=== PATIENT | female | born 1985 | race Caucasian/White ===

== ENCOUNTER 2024-08-12 20:37 | Emergency (ER) | payer SELFPAY ==
[2024-08-12 21:04] LABS: % Basophils 0.4 % (0-2); % Eosinophils 1.4 % (0-6); % Immature Granulocytes 0.4 % (0-0.5); % Lymphocytes 18.7 % (20.5-51.1); % Monocytes 8.1 % (1.7-9.3); Absolute Eosinophils 0.1 10^3/uL (0-0.7); Absolute Lymphocytes 1.5 10^3/uL (1.2-3.4); Absolute Monocytes 0.7 10^3/uL (0.1-0.6); Absolute Neutrophils 5.8 10^3/uL (1.4-6.5); Hematocrit 35.7 % (37.0-47.0); Hemoglobin 12.1 g/dL (12.0-16.0); Mean Corp Hgb Conc. 33.9 g/dL (33.0-37.0); Mean Corpuscular Volume 91.5 fL (81.0-99.0); Nucleated Red Blood Cells % 0 %; Platelet Count 207 10^3/uL (130-400); Red Cell Dist. Width 14.4 % (11.5-14.5); Urine Albumin 1+ (Neg - Trace); Urine Bilirubin Negative (Negative); Urine Character Clear (Clear); Urine Color Yellow; Urine Glucose Negative (Negative); Urine Ketone Negative (Negative); Urine Leukocyte 2+ (Negative); Urine Nitrite Positive (Negative); Urine Occult Blood 3+ (Negative); Urine Specific Gravity 1.015 (<1.030); Urine Urobilinogen Negative (Neg - 1+); White Blood Cell Count 8.1 10^3/uL (4.8-10.8)
[2024-08-12 21:11] LABS: HCG, Serum Qualitative Screen Negative
[2024-08-12 21:14] LABS: Urine Bacteria Many (Negative); Urine White Cell 70-80 /HPF (0-5)
[2024-08-12 21:25] LABS: ALT (SGPT) 15 U/L (0-35); AST (SGOT) 19 U/L (14-36); Alkaline Phosphatase 63 U/L (38-126); Blood Urea Nitrogen 13 mg/dl (7-17); Calcium 9.1 mg/dl (8.4-10.2); Carbon Dioxide 26 mmol/L (22-30); Chloride 102 mmol/L (98-107); Glucose 98 mg/dl (70-99); Potassium 4.1 mmol/L (3.5-5.1); Sodium 135 mmol/L (135-145); Total Bilirubin 0.4 mg/dl (0.2-1.3); eGFR > 60.00
[2024-08-12 21:26] LABS: Troponin I < 0.012 ng/ml
[2024-08-12 22:10] VITALS: BP 142/85
[2024-08-12 22:53] VITALS: BMI 24.1
[2024-08-12 23:00] VITALS: BP 128/85
--- NOTE | 2024-08-12 23:10 | ED.GENMED ---
History of Present Illness
General
Chief Complaint: Fever
Source: patient
Exam Limitations: none
Time Seen by Provider: 08/12/24 22:55
Nursing documentation reviewed up to this point in time: agreed with except (Patient denies chest pain)
History of Present Illness
History of Present Illness:
This is a 39-year-old woman who has remote history of substance abuse, history of anxiety, chronically maintained on Suboxone, Lexapro.
She presents with 5-day history of generalized aches, fatigue, fever with Tmax of 103 �F noted 2 days ago. She complains of generalized low back ache as well as intermittent posterior neck ache. She denies headache, she does admit to intermittent
brief lightheadedness with standing. Rare dry cough which she notes is chronic and unchanged. She is a smoker. She denies nasal congestion nor sore throat. No nausea or vomiting, no diarrhea or constipation. She does note some urinary
frequency, mild urgency but denies dysuria, denies hematuria, denies flank pain.
She has been taking combination Tylenol/ibuprofen tablets with moderate relief of symptoms, last dose at 5 PM.
She denies risk of , has normal menstrual period currently.
No close contacts with similar symptoms. No recent travel.
History of UTI/pyelonephritis as a young child. No history of frequent UTIs. No history of kidney stones.
Triage chief complaint notes chest pain. Patient denies chest pain. Denies shortness of breath. No palpitations.
Past History
Past History
ED Past Medical History: Psychiatric (Anxiety) and Other (Remote history of substance abuse)
ED Past Surgical History: Other (Vein ligation. Eye surgery.)
Social History
Tobacco: Smoker
Alcohol: None
Drug: Former user
Personal:
Living: with family
Employment: Employed
Family History
Family History: Other (Noncontributory)
Phy Exam
Physical Exam
Physical Exam:
GENERAL: 39-year-old woman appears her stated age, awake and alert, pleasant, appears in no acute distress. Borderline low-grade fever noted at 99.4 �F.
EYE: pupils equal and reactive. anicteric
NECK: Supple, nontender, no meningismus, no significant adenopathy.
ENT: posterior pharynx is clear, oral mucosa is moist. TM clear b/l, nares patent.
CARDIAC: Regular rate and rhythm. no murmur.
LUNGS: no acute respiratory distress, scant scattered end expiratory wheezes, clears with cough.
ABDOMEN: Soft, nondistended, without focal tenderness, no r/g, no cvat. normoactive BS.
BACK: Moderate thoracolumbar scoliosis with moderate left-sided lower thoracic hump. No midline bony tenderness. No definitive CVA tenderness.
NEUROLOGICAL: Alert and oriented x3, no focal neuro deficits. Gait is steady.
SKIN: Mildly hot to touch and dry, normal color, skin intact. No rash.
MUSCULOSKELETAL: No C/C/E. peripheral pulses are full and equal b/l. No palpable tenderness.
PSYCH: Normal and appropriate interaction.
Sepsis
Sepsis Screening
Sepsis Assessment: Sepsis Ruled Out
Sepsis Screen
Sepsis Screen: Sepsis Ruled Out
Date: 08/13/24
Time: 06:41
Course
Orders/Labs/Results
Orders:
Orders
08/12/24 20:38
Electrocardiogram (*1) Urgent
Reason for Study: Chest Pain
EKG- Treatment ONCE
Test Result ONCE
08/12/24 20:49
Complete Blood Count/With Diff Urgent
Comprehensive Metabolic Panel Urgent
HCG, Serum Qualitative Screen Urgent
Comment: Notify provider if positive test present
Troponin I Urgent
Urinalysis Reflex To Culture Urgent
Date Specimen was Collected: 08/12/24
Time Specimen was Collected: 20:38
Urine Microscopic Reflex Cult Urgent
Urine Culture Urgent
MARILU Source: U
Specimen Description:
Date Specimen was Collected: 08/12/24
Time Specimen was Collected: 20:38
08/12/24 23:09
0.9% Sodium Chloride 1000 ml [Nss] 1,000 ml IV BOLUS
CefTRIAXone [Rocephin] 2,000 mg IV NOW STA
08/12/24 23:19
Ibuprofen [Motrin] 600 mg PO NOW STA
08/12/24 23:21
Sterile Water [Sterile Water For Injection] 20 ml .ROUTE .STK-MED
08/12/24 23:37
Lactic Acid Urgent
Abnormal Lab Results
08/12/24 08/12/24
20:49 23:37
RBC 3.90 L 10^6/uL
(4.20-5.40)
Hct 35.7 L %
(37.0-47.0)
Absolute Monos (auto) 0.7 H 10^3/uL
(0.1-0.6)
Lymphocytes % 18.7 L %
(20.5-51.1)
Lactic Acid 0.5 L mmol/L
(0.7-2.0)
Ur Occult Blood Reflex 3+ A
(Negative)
Urine Nitrite (Reflex) Positive A
(Negative)
Leukocyte Esterase Rfl 2+ A
(Negative)
Urine RBC 3-6 A /HPF
(0-2)
Urine WBC (Reflex) 70-80 A /HPF
(0-5)
Urine Bacteria (Reflex) Many A
(Negative)
Urine Albumin (Reflex) 1+ A
(Neg - Trace)
08/12/24 20:49
08/12/24 20:49
Vital Signs
Temp: 99.4 F
Initial and Last Documented VS:
Initial Vital Signs
Resp
25
08/12/24 22:09
Last Documented Vital Signs
Temp Pulse Resp BP Pulse Ox
98.3 F 67 18 105/67 99
08/13/24 01:26 08/13/24 01:16 08/13/24 01:26 08/13/24 01:16 08/13/24 01:26
MDM/Problems Addressed
Differential Diagnosis Includes:
5-day history of fever, concern for viral syndrome, UTI, pyelonephritis, URI, pneumonia. Although reports neck pain, neck is supple, nontender, no meningismus. Denies headache and overall well in appearance. Meningitis is unlikely.
Labs thus far reassuring, within normal limits with normal white blood cell count, unremarkable chemistries. Troponin is negative. hCG is negative.
Urinalysis consistent with UTI. Nitrite positive. 70-80 WBCs, many bacteria.
She does note generalized low back pain, denies flank pain but with high fever, must consider at least early pyelonephritis.
Hemodynamically stable. Will check lactic acid.
Will initiate IV fluids and plan for an IV dose of Rocephin. Patient reports penicillin allergy�was told by her mother she has penicillin allergy reportedly developing a rash as a young child. No history of severe allergic reaction.
EKG shows normal sinus rhythm, normal axis, normal intervals. Flipped T waves anteriorly. No old EKG to compare. Patient denies chest pain, troponin is negative. Thus nothing to suggest ACS nor myocarditis.
As above, denies flank pain, no history of kidney stones, abdomen is soft without appreciable tenderness thus, at this point no indication for imaging.
*Pulse Oximetry
Patient hypoxic: no
*EKG
Interpreted by ED Provider?: Yes
Comparison EKG: no comparison EKG present
Rate: normal
Rhythm: sinus
[place]: normal axis
Interval: normal interval
QRS Pattern: normal QRS
Ischemia: T-wave inversion (Flipped T waves anteriorly. No old EKGs to compare.)
*Critical Care Note
Total Time (30-74mins, 75-104mins- exclusive of procedures): Not Applicable
Update Note
Update Note:
01:15
Patient feeling markedly improved after IV fluids, IV antibiotic, ibuprofen.
Will discharge to home with prescription for cefpodoxime 200 mg twice daily for 7 days. Ibuprofen for as needed fever, pain.
Discussed importance of staying well-hydrated on a daily basis.
Prompt follow-up with PCP for recheck.
Return precautions discussed.
ED Attending Note
-
Portions of this chart may have been created with voice recognition software.� Occasional wrong word or��sound alike� substitutions may have occurred due to the inherent limitations of voice recognition software.
Discharge Plan
Departure
Patient Disposition: Home (Routine Discharge)
Date of Disposition: 08/13/24
Time of Disposition: 01:22
Patient with high blood pressure during this ER visit?: No
Condition: Good
Discharge Problem:
Urinary tract infection
Instructions: Fever, Adult (DC), Urinary tract infection in adults - ED discharge instructions
Prescriptions:
New
cefpodoxime 200 mg tablet
200 mg PO BID Qty: 14 0RF
ibuprofen 600 mg tablet
600 mg PO Q6H PRN (Reason: fever or pain) Qty: 30 0RF
No Action
Subutex
8 mg PO BID
Patient Comments:
Pt states she takes it at 1130 and 1600
ibuprofen 600 MG tablet
600 mg PO Q4HPRN PRN (Reason: moderate pain/cramps) 0RF
escitalopram oxalate 10 MG tablet
10 mg PO DAILY 0RF
prednisone 20 MG tablet
40 mg PO DAILY Qty: 10 0RF
tramadol 50 MG tablet
50 mg PO Q6HPRN PRN (Reason: pain) Qty: 12 0RF
Referrals:
Dawit Fisher DO [Family Provider, Family Practice] - Call in 1-3 days for appt
Interventions
Interventions:
*Risk Screen - Suicide Last Done: 08/12/24 22:53
*General Assessment Last Done: 08/12/24 22:53
*Neglect/Abuse Screening Last Done: 08/12/24 22:53
*ED- Fall Risk Assessment Last Done: 08/12/24 22:53
*ED COVID-19 Vaccine History Last Done: 08/13/24 01:30
*Nursing Disposition Last Done: 08/13/24 01:30
ED- Neurological Assessment Last Done: 08/13/24 01:16
ED-Skin Assessment Last Done: 08/13/24 01:17
Discharge Date and Time
Discharge Date/Time: 08/13/24 01:30
Print Language: INDIAN
[2024-08-12] MEDS: NSS 1000 IV (23:26)
[2024-08-12] MEDS: MOTRIN 600 MG PO (23:26)
[2024-08-12] MEDS: ROCEPHIN 2000 MG IV (23:27)
[2024-08-12 23:56] LABS: Lactic Acid 0.5 mmol/L (0.7-2.0)
[2024-08-13 01:16] VITALS: BP 105/67
== END 2024-08-13 01:30 | disposition home or self-care (01) ==
LOC: EMR 20:37
PROVIDERS: Emergency Medicine; EMERGENCY PHYSICIAN Emergency Medicine; FAMILY PHYSICIAN Family Medicine
DX: N39.0 Urinary tract infection, site not specified (principal); F17.200 Nicotine dependence, unspecified, uncomplicated
CPT/HCPCS: 99284; 96374; 96361; 80053; 81003; 81015; 83605; 84484; 84703; 85025; 87077; 87086; 93005

== ENCOUNTER 2025-03-13 22:52 | Emergency (ER) | payer SELFPAY ==
[2025-03-13 22:54] VITALS: BP 145/92
[2025-03-14] MEDS: ADACEL 0.5 ML IM (00:01)
--- NOTE | 2025-03-14 00:31 | ED.SKININJ ---
HPI-Injury
General
Chief Complaint: Skin Surface Trauma
Source: patient
Exam Limitations: none
Time Seen by Provider: 03/13/25 23:15
Nursing documentation reviewed up to this point in time: agreed with
History of Present Illness-Injury
Is this injury a work related problem?: No
Is pt an associate of [facility]?: No
Initial Injury comments:
Patient states she accidentally cut her hand on a tin can lid. She has a laceration to the dorsum of her right hand over the fifth MCP. Incident occurred this afternoon.
Past History
Past History
ED Past Medical History: Psychiatric (Anxiety) and Other (Remote history of substance abuse)
ED Past Surgical History: Other (Vein ligation. Eye surgery.)
Social History
Tobacco: Smoker
Alcohol: None
Drug: Former user
Personal:
Living: with family
Employment: Employed
Family History
Family History: Other (Noncontributory)
Review of Systems
Review of Systems
Allergies reviewed?: Yes
All Other Systems: ROS reviewed and negative except as documented in HPI and ROS
Psychiatric: Reports no symptoms
Skin Exam
Laceration
Right Dorsal Hand:
Length in cm: 1.5
Orientation: C shaped
Any active bleeding?: no active bleeding
Distal skin color and temperature: normal-warm & good color
Normal distal neurovascular exam: Yes
Range of motion: full
Course
Orders/Labs/Results
Orders:
Orders
03/13/25 23:55
Tetanus/Diphth/Acelpertussis [Adacel] 0.5 ml IM .ONCE ONE
Vital Signs
Initial and Last Documented VS:
Initial Vital Signs
Temp Pulse Resp BP Pulse Ox
98.3 F 68 18 145/92 97
03/13/25 22:54 03/13/25 22:54 03/13/25 22:54 03/13/25 22:54 03/13/25 22:54
Last Documented Vital Signs
Temp Pulse Resp BP Pulse Ox
98.3 F 68 18 145/92 97
03/13/25 22:54 03/13/25 22:54 03/13/25 22:54 03/13/25 22:54 03/13/25 22:54
Procedures
Laceration Closure
Right Dorsal Hand:
Status of Wound: clean
Description of Wound Edges: sharp
Preparation: cleaned with saline and cleaned with Betadine
Anesthesia: 1% Lidocaine with epi
Revision/Debridement: routine- no revision
Wound exploration: no tendon involvement
Type of Closure: single layer closure
Skin Closure Material: 5-0 prolene
*Pulse Oximetry
SaO2: 97
Oxygen Mode of Delivery: Room air
ED Attending Note
-
Portions of this chart may have been created with voice recognition software.� Occasional wrong word or��sound alike� substitutions may have occurred due to the inherent limitations of voice recognition software.
Discharge Plan
Departure
Patient Disposition: Home (Routine Discharge)
Date of Disposition: 03/13/25
Time of Disposition: 23:55
Patient with high blood pressure during this ER visit?: No
Condition: Good
Covid-19: Not Applicable
Discharge Problem:
Hand laceration
Instructions: Laceration Repair With Stitches (DC)
Prescriptions:
No Action
Subutex
8 mg PO BID
Patient Comments:
Pt states she takes it at 1130 and 1600
ibuprofen 600 MG tablet
600 mg PO Q4HPRN PRN (Reason: moderate pain/cramps) 0RF
escitalopram oxalate 10 MG tablet
10 mg PO DAILY 0RF
prednisone 20 MG tablet
40 mg PO DAILY Qty: 10 0RF
tramadol 50 MG tablet
50 mg PO Q6HPRN PRN (Reason: pain) Qty: 12 0RF
cefpodoxime 200 mg tablet
200 mg PO BID Qty: 14 0RF
ibuprofen 600 mg tablet
600 mg PO Q6H PRN (Reason: fever or pain) Qty: 30 0RF
Referrals:
Dawit Fisher DO [Family Provider, Family Practice]
Referral Note: Sutures can be removed in 7 to 10 days
Interventions
Interventions:
*General Assessment Last Done: 03/13/25 22:57
*Neglect/Abuse Screening Last Done: 03/13/25 22:57
*ED COVID-19 Vaccine History Last Done: 03/13/25 22:57
*ED Influenza Vaccine History Last Done: 03/13/25 22:57
*Risk Screen - Suicide (C-SSRS) Last Done: 03/13/25 22:57
*Nursing Disposition Last Done: 03/14/25 00:09
ED-Skin Assessment Last Done: 03/14/25 00:08
Discharge Date and Time
Discharge Date/Time: 03/14/25 00:09
Print Language: OCCITAN
== END 2025-03-14 00:09 | disposition home or self-care (01) ==
LOC: EMR 22:52
PROVIDERS: EMERGENCY PHYSICIAN Emergency Medicine; FAMILY PHYSICIAN Family Medicine
DX: S61.411A Laceration without foreign body of right hand, initial encounter (principal); W26.8XXA Contact with other sharp object(s), not elsewhere classified, initial encounter; F17.200 Nicotine dependence, unspecified, uncomplicated; Z23 Encounter for immunization
CPT/HCPCS: 99282; 90471; 12001; 90715